=== PATIENT | male | born 1930 | race Caucasian/White ===

== ENCOUNTER → 2016-11-22 | Outpatient (CLI) | payer OTHER, BC ==
[~2016-11-22] MED LIST: ACET-1311 PO; ASPCH81 PO; FLM4 PO; IBUP600T44 PO; LPTUNK PO; PYRI100T4 PO
[2016-11-22 11:28] LABS: ALT/SGPT 21 U/L (12-78); AST/SGOT 21 U/L (15-37); BLOOD UREA NITROGEN 18 mg/dl (7-18); BUN/CREATININE RATIO 14.8 (10-20); CALCIUM 8.7 mg/dl (8.5-10.1); CARBON DIOXIDE 29 mmol/L (21-32); CHLORIDE 107 mmol/L (98-107); GLUCOSE 93 mg/dl (70-99); POTASSIUM 4.2 mmol/L (3.5-5.1); PROSTATE SPECIFIC ANTIGEN 0.991 ng/ml (0.000-4.000); SODIUM 141 mmol/L (136-145)
[2016-11-22 11:31] LABS: CHOLESTEROL 133 mg/dl (0-200); HDL CHOLESTEROL 44 mg/dl; LDL CHOLESTEROL CALCULATED 73 mg/dl; TRIGLYCERIDES 81 mg/dl (0-150); VERY LOW DENSITY LIPOPROT CALC 16 mg/dl
== END | disposition home or self-care (01) ==
LOC: C.LABBC 08:09
PROVIDERS: ATTEND Urology
DX: I10 Essential (primary) hypertension (principal); R73.9 Hyperglycemia, unspecified; E78.00 Pure hypercholesterolemia, unspecified; R33.9 Retention of urine, unspecified

== ENCOUNTER → 2016-12-14 | Outpatient (CLI) | payer OTHER, BC ==
--- NOTE | 2016-12-14 15:34 | DIAGNOSTIC IMAGING REPORT ---
KUB CLINICAL HISTORY: Incomplete bladder emptying pain COMPARISON STUDY: 05/05/2015 FINDINGS: Stable degenerative and postoperative changes to the lumbar spine. Increased fecal load throughout the colon. No significant small bowel distention. No abnormal calcifications. IMPRESSION: Mild increase in fecal load throughout the colon consistent with mild fecal stasis. Study otherwise is negative. Stable postoperative and degenerative changes of the lumbar spine. No significant urinary tract calcifications Electronically signed by: Gigi Mosley M.D. 12/14/2016 3:32 PM Dictated Date/Time: 12/14/2016 3:31 PM
--- NOTE | 2016-12-14 15:36 | DIAGNOSTIC IMAGING REPORT ---
CHEST 2 VIEWS ROUTINE CLINICAL HISTORY: ABNORMAL BLOOD SCREENING dyspnea COMPARISON STUDY: No previous studies for comparison. FINDINGS: Mild emphysematous change. Lungs are considered clear. Permanent unipolar cardiac pacemaker. IMPRESSION: Mild emphysematous change. No acute process. Electronically signed by: Gigi Mosley M.D. 12/14/2016 3:34 PM Dictated Date/Time: 12/14/2016 3:34 PM
== END | disposition home or self-care (01) ==
LOC: C.RADBC 14:55
PROVIDERS: ATTEND Internal Medicine Hematology & Oncology
DX: R33.9 Retention of urine, unspecified (principal); R79.9 Abnormal finding of blood chemistry, unspecified

== ENCOUNTER → 2016-12-20 | Outpatient (CLI) | payer OTHER, BC ==
--- NOTE | 2016-12-20 11:04 | DIAGNOSTIC IMAGING REPORT ---
ULTRASOUND OF THE LIVER AND SPLEEN CLINICAL HISTORY: Myeloproliferative disorder. COMPARISON STUDY: KUB dated 12/14/2016. TECHNIQUE: Real-time, grayscale, and color flow sonography of the liver and spleen is performed. Images are reviewed in the transverse and longitudinal planes. FINDINGS: Liver: The liver is normal in size and homogeneous in echotexture, measuring 13.5 cm in length. No intrahepatic biliary ductal dilatation is seen. The main portal vein is patent. Spleen: The spleen is top normal in size and homogeneous in echotexture, measuring 12.7 cm in length. No splenic lesion is seen. No perisplenic fluid is identified. Kidneys: Survey images of the kidneys demonstrate cortical atrophy. There is no hydronephrosis. A 3.4 cm cyst is noted in the interpolar right kidney. IMPRESSION: 1. The liver and spleen are normal in size and echotexture. 2. No acute sonographic abnormality is seen. Electronically signed by: Sylvester Powers M.D. 12/20/2016 11:02 AM Dictated Date/Time: 12/20/2016 10:58 AM
== END | disposition home or self-care (01) ==
LOC: C.ULTR 10:25
PROVIDERS: ATTEND Internal Medicine Hematology & Oncology
DX: R79.9 Abnormal finding of blood chemistry, unspecified (principal)

== ENCOUNTER → 2017-01-02 | Day surgery (SDC) | payer OTHER, BC ==
[2016-12-08 12:35] VITALS: Ht 174 cm; Wt 63.6 kg
[~2017-01-02] VITALS: Ht 174 cm; Wt 63.6 kg
[~2017-01-02] MED LIST changes: +500ML BSS 0.3ML EPI 1:1000PF IRRIG ONE; -ACET-1311 PO; +ACETAMINOPHEN 325 MG TAB PO PRN; +AMVISC PLUS 0.8ML SYRINGE INT OCU ONE; -ASPCH81 PO; +ATROPINE SULFATE 0.1 MG/ML 5ML SYR IV PRN; +BSS FLUSH ONE; +EpHEDrine SULFATE INJ 50 MG/ML AMP IV PRN; +EpINEphrine INJ 1MG/ML AMP 1 MG/ML AMP ONE; -FLM4 PO; -IBUP600T44 PO; +LACTATED RINGER'S 1000ML 500 ML IV SCH; +LIDOCAINE 3.5% OPH GEL PER APPLICATION CHARGE ONE; +LIDOCAINE HCL 1% MPF 2 ML VIAL ONE; -LPTUNK PO; +MIDAZOLAM HCL 1 MG/ML 2ML VIAL ONE; +MIX: 4ML BSS 1ML EPI 1:1000 PF INSTIL ONE; +OCUCOAT 1 ML SOLN IO ONE; +PHENYLEPHRINE HCL 10% OP SOLN PER DROP CHARGE OPR SCH; +POVIDONE-IODINE OP SOLN 30 ML BTL ONE; +PROPARACAINE 0.5% OP SOLN PER DROP CHARGE OPR SCH; -PYRI100T4 PO; +TOBRAMYCIN/DEXAMETHASONE OPH OINT PER APPLN CHARGE ONE
[2017-01-02] MEDS: TROPICAMIDE 1% OP SOLN PER DROP CHARGE OPR SCH ×2 (06:31→06:37)
[2017-01-02] MEDS: CYCLOPENTOLATE HCL 1% OP SOLN PER DROP CHARGE OPR SCH ×2 (06:32→06:37)
[2017-01-02] MEDS: KETOROLAC 0.5% OP SOLN PER DROP CHARGE OPR SCH ×2 (06:33→06:38)
[2017-01-02] MEDS: GATIFLOXACIN OP SOLN PER DROP CHARGE OPR SCH ×2 (06:34→06:44)
[2017-01-02] MEDS: PHENYLEPHRINE HCL 2.5% OP SOLN PER DROP CHARGE OPR SCH ×2 (06:36→06:37)
--- NOTE | 2017-01-02 07:00 | History & Physical Bridge - SC ---
H&P Re-Evaluation Bridge Note: I have examined the patient, reviewed the History & Physical and in the interval since the performance of the History & Physical I have noted the following changes of clinical significance: No changes noted
[2017-01-02 07:30] VITALS: TEMP 36.7
--- NOTE | 2017-01-02 07:30 | Discharge Instructions-SurgCtr ---
Discharge Instructions Date of Service Jan 02, 2017. Visit Reason for Visit: Cataract Right Eye Discharge Discharge Diagnosis / Problem: cataract Discharge Goals Goal(s): Improve function Activity Recommendations Activity Limitations: per Instructions/Follow-up section Anesthesia . Post Anesthesia Instructions: If you have had General Anesthesia or IV Sedation: * Do not drive today. * Resume driving when surgeon permits. * Do not make important decisions or sign legal documents today. * Call surgeon for: 1. Temperature elevations greater than 101 degrees F. 2. Uncontrollable pain. 3. Excessive bleeding. 4. Persistent nausea and vomiting. 5. Medication intolerance (nausea, vomiting or rash). * For nausea and vomiting use only clear liquids such as: tea, soda, bouillon until nausea subsides, then gradually increase diet as tolerated. * If you have any concerns or questions, call your surgeon's office. If physician is unavailable and it is an emergency, call 911 or go to the nearest emergency room. . Instructions / Follow-Up Instructions / Follow-Up ACTIVITY RECOMMENDATIONS: * No strenuous lifting, jogging or running for 4 days * No swimming or yard work for 1 week. * Limited bending is permitted, such as putting on shoes. RETURN TO SCHOOL/WORK: No work until seen by physician in office. MEDICATIONS: Resume previous medications unless instructed otherwise by your surgeon. This includes eye drops for glaucoma. Zymaxid/Gatifloxacin (cuevas cap) - one drop every 2 hours until bedtime Nevanac/Ilevro/Prolensa/Ketorolac (verduzco cap) - one drop every 4 hours until bedtime Prednisolone (white/pink cap, SHAKE WELL) - one drop every 2 hours until bedtime Starting tomorrow - all 3 drops every 4 hours until seen in the office Optive drops - as needed for discomfort SPECIAL CARE INSTRUCTIONS: * Wear eyeshield when sleeping, for four nights. * You may wear your own glasses or sunglasses while awake. * You may read or watch TV * You may shower and wash your face, but be gentle around the eye and pat dry. * Blurry vision and mild irritation are normal. * Call office if pain is more severe or vision becomes dark at . FOLLOW UP VISIT: Follow-up with Dr Carl tomorrow. Diet Recommendations Home Diet: resume previous diet Procedures Procedures Performed: Right Cataract Phacoemulsification With Intraocular Lens Implant Pending Studies Studies pending at discharge: no Medical Emergencies . Who to Call and When: Medical Emergencies: If at any time you feel your situation is an emergency, please call 911 immediately. . Non-Emergent Contact Non-Emergency issues call your: Parts Analyst . . "Provider Documentation" section prepared by Mack Carl. .
--- NOTE | 2017-01-02 07:31 | [facility] Operative Report ---
Operative Report Date of Service Jan 02, 2017. Operative Report 1. PREOPERATIVE DIAGNOSIS: Cataract of the right eye. 2. POSTOPERATIVE DIAGNOSIS: Same. 3. PROCEDURE: Phacoemulsification with intraocular lens implantation of the right eye. SURGEON: Dr. Mack Carl. ANESTHESIA: Topical Lidocaine gel, 1% Non- Preserved intracameral Lidocaine, and monitored intravenous sedation. INDICATIONS FOR THE PROCEDURE: The patient is a 86 - year-old male with a history of cataract of the right eye causing significant visual impairment. The details of the proposed procedure were explained to the patient who asked appropriate questions and following discussion of all risks, benefits and alternatives agreed to have the procedure done. The patient had a know history of taking of flomax. 4. OPERATION AND FINDINGS: DESCRIPTION OF PROCEDURE: After informed consent was obtained, the patient was brought to the Operating Room at the [facility]. The patient was placed in a supine position and then the right eye was prepped and draped in the usual sterile fashion for intraocular surgery. A drop of topical Lidocaine gel was placed in the operative eye. A wire lid speculum was then placed in the fornices. A corneal paracentesis was then created temporally. The Non-Preserved Lidocaine was then instilled into the anterior chamber. Epinephrine with a 1:4 dilution was instilled into the anterior chamber. The anterior chamber was then pressurized with viscoelastic. A 2.0 mm clear corneal incision was then created temporally. A cystotome was inserted into the anterior chamber and used to create a tear in the anterior lens capsule. This capsular tear was then used to create a small flap and the flap was dragged in a counterclockwise direction in order to create a continuous curvilinear capsulorrhexis. Hydrodissection was accomplished with balanced salt solution. Phacoemulsification of the lens nucleus was then performed in a standard [id number] technique. The phaco time was 30 seconds with an average power of 12 %. The remaining cortical material was removed using irrigation aspiration. The capsular bag was then filled with viscoelastic. A [employer] MX60 +21.0 diopters lens was then loaded into the injector and injected into the capsular bag. The remaining viscoelastic was removed with the irrigation aspiration handpiece. The wound was hydrated and then checked and found to be watertight. The intraocular pressure was checked and found to be adequate. The wire lid speculum was removed and the patient's face was cleaned and dried. TobraDex ointment was placed in the inferior fornix. The patient was discharged to the Recovery Room having tolerated the procedure well. There were no complications. The patient will be seen tomorrow in the office for follow-up. I attest to the content of the Intraoperative Record and any orders documented therein. Any exceptions are noted below.
[2017-01-02 07:55] VITALS: BP 139/73; PULSE 61; O2SAT 97
--- NOTE | 2017-01-02 08:00 | Anesthesia Progress Nt - [facility] ---
Anesthesia Post Op Note Date & Time Jan 02, 2017 at 07:59 Vital Signs Pain Intensity: 0 Vital Signs Past 12 Hours Date Time Temp Pulse Resp B/P Pulse Ox O2 Delivery O2 Flow Rate FiO2 01/02/17 07:30 36.7 58 14 149/75 95 Room Air 01/02/17 06:28 36.7 72 16 165/82 97 Room Air Notes Mental Status: alert / awake / arousable, participated in evaluation Pt Amnestic to Procedure: Yes Nausea / Vomiting: adequately controlled Pain: adequately controlled Airway Patency, RR, SpO2: stable & adequate BP & HR: stable & adequate Hydration State: stable & adequate Anesthetic Complications: no major complications apparent
== END | disposition home or self-care (01) ==
LOC: X.SURG 06:04
PROVIDERS: ATTEND Ophthalmology
DX: H26.9 Unspecified cataract (principal); E78.00 Pure hypercholesterolemia, unspecified; I10 Essential (primary) hypertension; I73.9 Peripheral vascular disease, unspecified; Z95.0 Presence of cardiac pacemaker

== ENCOUNTER → 2017-05-23 | Outpatient (CLI) | payer OTHER, BC ==
[2017-05-23 11:03] LABS: URINE APPEARANCE CLOUDY (CLEAR); URINE BILIRUBIN NEG (NEG); URINE COLOR YELLOW; URINE NITRITE NEG (NEG); URINE SPECIFIC GRAVITY 1.024 (1.000-1.030); UROBILINOGEN NEG (NEG)
[2017-05-23 11:06] LABS: MANUAL MICROSCOPIC REQUIRED? NO; REVIEW REQ? NO
[2017-05-23 11:16] LABS: ALT/SGPT 28 U/L (12-78); AST/SGOT 26 U/L (15-37); BLOOD UREA NITROGEN 25 mg/dl (7-18); BUN/CREATININE RATIO 22.7 (10-20); CALCIUM 8.7 mg/dl (8.5-10.1); CARBON DIOXIDE 24 mmol/L (21-32); CHLORIDE 110 mmol/L (98-107); CHOLESTEROL 109 mg/dl (0-200); GLUCOSE 104 mg/dl (70-99); POTASSIUM 3.8 mmol/L (3.5-5.1); SODIUM 141 mmol/L (136-145); TRIGLYCERIDES 103 mg/dl (0-150); VERY LOW DENSITY LIPOPROT CALC 21 mg/dl
[2017-05-23 11:24] LABS: CHOLESTEROL/HDL RATIO 2.4; HDL CHOLESTEROL 45 mg/dl; LDL CHOLESTEROL CALCULATED 43 mg/dl
[2017-05-23 11:31] LABS: ESTIMATED AVERAGE GLUCOSE 105 mg/dl; HA1C FLAG Normal (Normal)
== END | disposition home or self-care (01) ==
LOC: C.LABBC 07:57
PROVIDERS: ATTEND Internal Medicine Cardiovascular Disease
DX: L95.9 Vasculitis limited to the skin, unspecified (principal); R76.8 Other specified abnormal immunological findings in serum; E55.9 Vitamin D deficiency, unspecified; I10 Essential (primary) hypertension; R73.9 Hyperglycemia, unspecified; E78.00 Pure hypercholesterolemia, unspecified

== ENCOUNTER → 2017-09-06 | Outpatient (CLI) | payer OTHER, BC ==
[2017-09-06 10:51] LABS: HEMATOCRIT 39.5 % (42-52); MEAN CELL VOLUME 83.7 fL (80-100); MEAN CORPUSCULAR HEMOGLOBIN 27.8 pg (25-34); MEAN CORPUSCULAR HGB CONC 33.2 g/dl (32-36); PLATELET COUNT 170 K/uL (130-400); RED BLOOD COUNT 4.72 M/uL (4.7-6.1); WHITE BLOOD COUNT 5.75 K/uL (4.8-10.8)
[2017-09-06 11:17] LABS: CREATININE 1.25 mg/dl (0.60-1.40)
[2017-09-06 11:18] LABS: BASO ABS # 0.05 K/uL (0-0.2); BASOPHIL % 0.9 % (0-2); COMPLETE YES; LARGE GRANULAR LYMPH ABSOLUTE 1.18 K/uL; LARGE GRANULAR LYMPHOCYTE % 20.5 %; LYMPH ABS # 0.62 K/uL (1.2-3.4); LYMPHOCYTE % 10.7 %; MYELOCYTE % 6.3 %; NEUTROPHILS % 60.7 %; VACUOLIZATION 1+
== END | disposition home or self-care (01) ==
LOC: C.LABBC 07:47
PROVIDERS: ATTEND Internal Medicine Rheumatology
DX: E55.9 Vitamin D deficiency, unspecified (principal); L95.9 Vasculitis limited to the skin, unspecified; L98.2 Febrile neutrophilic dermatosis [Sweet]; Z79.899 Other long term (current) drug therapy

== ENCOUNTER → 2017-09-19 | Outpatient (CLI) | payer OTHER, BC ==
--- NOTE | 2017-09-19 08:47 | DIAGNOSTIC IMAGING REPORT ---
LUMBAR SPINE MIN 4 VIEWS CLINICAL HISTORY: LEG PAIN COMPARISON STUDY: None. FINDINGS: Mild dextroscoliosis of the lumbar spine. Posterior decompression at L4-L5. No fractures within the lumbar spine. The sacrum is intact. Mild facet degenerative changes throughout the lumbar spine. Moderate disc space narrowing at L4-L5 and L5-S1. Mild disc space narrowing at L1-L2, L2-L3, L3-L4. Small endplate osteophytes seen throughout the lumbar spine. IMPRESSION: 1. No fractures identified within the lumbar spine. 2. Mild to moderate degenerative changes as described above. 3. Mild dextroscoliosis. Electronically signed by: Ming Melvin M.D. 09/19/2017 8:46 AM Dictated Date/Time: 09/19/2017 8:32 AM
== END | disposition home or self-care (01) ==
LOC: C.RDSM 08:18
PROVIDERS: ATTEND Internal Medicine
DX: M79.606 Pain in leg, unspecified (principal); M47.816 Spondylosis without myelopathy or radiculopathy, lumbar region; M41.86 Other forms of scoliosis, lumbar region

== ENCOUNTER → 2017-10-18 | Outpatient (CLI) | payer OTHER, BC ==
[~2017-10-18] MED LIST changes: -500ML BSS 0.3ML EPI 1:1000PF IRRIG ONE; -ACETAMINOPHEN 325 MG TAB PO PRN; -AMVISC PLUS 0.8ML SYRINGE INT OCU ONE; +ASPI81TA28 PO; +ATOR10TA82 PO; -ATROPINE SULFATE 0.1 MG/ML 5ML SYR IV PRN; -BSS FLUSH ONE; +CZR25 PO; -EpHEDrine SULFATE INJ 50 MG/ML AMP IV PRN; -EpINEphrine INJ 1MG/ML AMP 1 MG/ML AMP ONE; +FINA5TAB PO; +FLM4 PO; +GABA-112 PO; +HYDR200T5 PO; -LACTATED RINGER'S 1000ML 500 ML IV SCH; -LIDOCAINE 3.5% OPH GEL PER APPLICATION CHARGE ONE; -LIDOCAINE HCL 1% MPF 2 ML VIAL ONE; -MIDAZOLAM HCL 1 MG/ML 2ML VIAL ONE; -MIX: 4ML BSS 1ML EPI 1:1000 PF INSTIL ONE; -OCUCOAT 1 ML SOLN IO ONE; -PHENYLEPHRINE HCL 10% OP SOLN PER DROP CHARGE OPR SCH; -POVIDONE-IODINE OP SOLN 30 ML BTL ONE; +PRD/1 PO; +PRD/25 PO; -PROPARACAINE 0.5% OP SOLN PER DROP CHARGE OPR SCH; -TOBRAMYCIN/DEXAMETHASONE OPH OINT PER APPLN CHARGE ONE
[2017-10-18 13:36] LABS: BASO % 0.5 %; BASO ABS # 0.04 K/uL (0-0.2); EOS % 0.4 %; EOS ABS # 0.03 K/uL (0-0.5); HEMATOCRIT 40.8 % (42-52); HEMOGLOBIN 13.4 g/dL (14.0-18.0); IG# 0.29 K/uL (0.00-0.02); LYMPH % 11.9 %; LYMPH ABS # 0.91 K/uL (1.2-3.4); MEAN CELL VOLUME 86.8 fL (80-100); MEAN CORPUSCULAR HEMOGLOBIN 28.5 pg (25-34); MEAN CORPUSCULAR HGB CONC 32.8 g/dl (32-36); MEAN PLATELET VOLUME 11.1 fL (7.4-10.4); MONO % 2.3 %; MONO ABS # 0.18 K/uL (0.11-0.59); NEUT % 81.1 %; NEUT ABS # 6.22 K/uL (1.4-6.5); PLATELET COUNT 146 K/uL (130-400); RED CELL DISTRIBUTION WIDTH CV 16.8 % (11.5-14.5); RED CELL DISTRIBUTION WIDTH SD 53.2 fL (36.4-46.3); WHITE BLOOD COUNT 7.67 K/uL (4.8-10.8)
== END | disposition home or self-care (01) ==
LOC: C.LABBC 10:05
PROVIDERS: ATTEND Internal Medicine Rheumatology
DX: L95.9 Vasculitis limited to the skin, unspecified (principal); E55.9 Vitamin D deficiency, unspecified; L98.2 Febrile neutrophilic dermatosis [Sweet]; Z79.899 Other long term (current) drug therapy

== ENCOUNTER → 2017-10-31 | Day surgery (SDC) | payer OTHER, BC ==
[2017-10-09 10:34] VITALS: Ht 172.7 cm; Wt 62.7 kg
[~2017-10-31] VITALS: Ht 172.7 cm; Wt 62.7 kg
[~2017-10-31] MED LIST changes: +LIDOCAINE HCL 1% MPF 5 ML VIAL ONE; +SODIUM CHLORIDE 0.9% INJ 10 ML VIAL ONE
--- NOTE | 2017-10-31 14:53 | [facility] Post Operative Brief Note ---
Immediate Operative Summary Operative Date Oct 31, 2017. Pre-Operative Diagnosis RIGHT LATERAL HIP PAIN Post-Operative Diagnosis RIGHT LATERAL HIP PAIN Procedure(s) Performed Caudal Epidural Steroid Injection Surgeon DR. Abby JACINTO Manager Urgent Care Surgeon(s) None Estimated Blood Loss NONE Findings Consistent with Post-Op Diagnosis Specimens NA Drains None Anesthesia Type Local Complication(s) none Disposition Disposition:
--- NOTE | 2017-10-31 14:55 | Discharge Instructions ---
Discharge Instructions Date of Service Oct 31, 2017. Visit Reason for Visit: Lumbar Radiculopathy Discharge Discharge Diagnosis / Problem: right leg pain Discharge Goals Goal(s): Decrease discomfort, Improve function Activity Recommendations Activity Limitations: resume your previous activity Anesthesia . Post Anesthesia Instructions: If you have had General Anesthesia or IV Sedation: * Do not drive today. * Resume driving when surgeon permits. * Do not make important decisions or sign legal documents today. * Call surgeon for: 1. Temperature elevations greater than 101 degrees F. 2. Uncontrollable pain. 3. Excessive bleeding. 4. Persistent nausea and vomiting. 5. Medication intolerance (nausea, vomiting or rash). * For nausea and vomiting use only clear liquids such as: tea, soda, bouillon until nausea subsides, then gradually increase diet as tolerated. * If you have any concerns or questions, call your surgeon's office. If physician is unavailable and it is an emergency, call 911 or go to the nearest emergency room. . Diet Recommendations Recommended Home Diet: resume previous diet Procedures Procedures Performed: Caudal Epidural Steroid Injection Pending Studies Studies pending at discharge: no Medical Emergencies . Who to Call and When: Medical Emergencies: If at any time you feel your situation is an emergency, please call 911 immediately. . Non-Emergent Contact Non-Emergency issues call your: Specialist . . "Provider Documentation" section prepared by Boom Alvarado. .
[2017-10-31 14:57] VITALS: TEMP 36.7
[2017-10-31 15:18] VITALS: BP 129/66; PULSE 64; O2SAT 99
--- NOTE | 2017-10-31 15:35 | OPERATIVE REPORT ---
DATE OF OPERATION: 10/31/2017 PREOPERATIVE DIAGNOSIS: History of lumbar surgery with recurrent right L5 radiculopathy. POSTOPERATIVE DIAGNOSIS: Same. PROCEDURE: Caudal epidural steroid injection under fluoroscopic guidance. INDICATIONS: The patient is an 87-year-old white male who has had chronic right leg pain that was first thought to be hip related; however, it is following a classic right L5 dermatomal distribution, he has had a prior history of surgery done at L4-L5 and decision is made to enter via a caudal approach to provide him with relief of the radicular pain and his gabapentin has been minimally effective. PHYSICAL EXAMINATION: Pleasant male seated comfortably. He has no seated straight leg raise and he has no focal weakness of the lower extremities. CONSENT: Verbal and written consent was obtained from the patient. Risks and benefits were reviewed. Risks include but are not limited to abscess and allergic reaction. The patient wishes to proceed. DESCRIPTION OF PROCEDURE: The patient was taken back to the special procedures room of the [facility] where he was maintained in a prone position. Backside was cleansed with Betadine x3 and a dry sterile dressing was applied. Fluoroscope was used to identify the sacral hiatus and the overlying skin was anesthetized with 4 mL of lidocaine 1% with a 25 gauge 1.5-inch needle. A 25 gauge 3.5 inch spinal needle was then directed under fluoroscopic guidance into the joint space. It was then injected with 40 mg of Depo-Medrol and 4 mL of preservative free sodium chloride and reproduced a familiar sensation down the right L5 dermatome it was then slowly injected and the needle was retracted a little untwisted with some improvement in his symptoms. DISPOSITION: 1. He was taken out into the discharge recovery area where he will be discharged home once discharge criteria have been met. 2. Follow up in the [facility] office in 2-4 weeks. I attest to the content of the Intraoperative Record and any orders documented therein. Any exception s are noted below.
== END | disposition home or self-care (01) ==
LOC: X.SURG 13:23
PROVIDERS: ATTEND Physical Medicine & Rehabilitation
DX: M54.16 Radiculopathy, lumbar region (principal)

== ENCOUNTER → 2017-12-19 | Outpatient (CLI) | payer OTHER, BC ==
[~2017-12-19] MED LIST changes: -LIDOCAINE HCL 1% MPF 5 ML VIAL ONE; -SODIUM CHLORIDE 0.9% INJ 10 ML VIAL ONE
[2017-12-19 11:37] LABS: ALT/SGPT 34 U/L (12-78); AST/SGOT 29 U/L (15-37); BLOOD UREA NITROGEN 21 mg/dl (7-18); CALCIUM 8.6 mg/dl (8.5-10.1); CARBON DIOXIDE 26 mmol/L (21-32); CHOLESTEROL 71 mg/dl (0-200); CREATININE 1.32 mg/dl (0.60-1.40); GLUCOSE 94 mg/dl (70-99); POTASSIUM 3.9 mmol/L (3.5-5.1); SODIUM 138 mmol/L (136-145)
[2017-12-19 11:43] LABS: LDL CHOLESTEROL CALCULATED 25 mg/dl
== END | disposition home or self-care (01) ==
LOC: C.LABBC 08:00
PROVIDERS: ATTEND Internal Medicine Cardiovascular Disease
DX: I48.0 Paroxysmal atrial fibrillation (principal); I10 Essential (primary) hypertension; E78.00 Pure hypercholesterolemia, unspecified